=== PATIENT | female | born 1970 | race Caucasian/White ===

== ENCOUNTER 2016-09-10 10:58 | Emergency (ER) | payer SELFPAY ==
[~2016-09-10] VITALS: Ht 172.7 cm; Wt 81.5 kg
[~2016-09-10 10:58] MED LIST: ALBI1INJ; DOXY100T PO; GEMF600T PO; GLUCTAB PO; GLYB2.5T3 PO; LISI-360 PO; NAPR500 PO; SERT25TA83 PO
[2016-09-10 11:02] VITALS: BP 178/110; PULSE 88; RESP 18; TEMP 98.3; O2SAT 95
--- NOTE | 2016-09-10 11:08 | PD ---
Physical Exam Time Seen by Provider: 11:04 Narrative 46 year old presents with back pain for two weeks. Pt is diabetic, htn. Pt recently started back on her medication 1 week ago after visit at [facility]. Pt was given percocet there for her pain following a CT that she reports being negative. Pt has been with frequent voids and increasingly thirsty. Nausea without vomiting. Chilled without fever. No other symptoms Data Data Last Documented VS Vital Signs Date Time Temp Pulse Resp B/P Pulse Ox O2 Delivery O2 Flow Rate FiO2 09/10/16 11:02 98.3 88 18 178/110 95 Room Air Orders Basic Metabolic Panel (Bmp) (09/10/16 11:08) Complete Blood Count With Diff (09/10/16 11:08) Urinalysis - C+S If Indicated (09/10/16 11:08) Electrocardiogram (09/10/16 11:08) Ct Abd/Pel W Iv Contrast(Rout) (09/10/16 ) Iohexol 350 Inj (Omnipaque 350 Inj) (09/10/16 13:46) Ketorolac Inj (Toradol Inj) (09/10/16 15:15) Ondansetron Inj (Zofran Inj) (09/10/16 15:15) Sodium Chlor 0.9% 1000 Ml Inj (Ns 1000 M (09/10/16 15:15) Filter, Kidney Stone Bg (09/10/16 15:14) Labs Laboratory Tests Test 09/10/16 11:10 White Blood Count 14.7 TH/MM3 Red Blood Count 5.61 MIL/MM3 Hemoglobin 17.2 GM/DL Hematocrit 48.6 % Mean Corpuscular Volume 86.6 FL Mean Corpuscular Hemoglobin 30.7 PG Mean Corpuscular Hemoglobin 35.5 % Concent Red Cell Distribution Width 13.2 % Platelet Count 239 TH/MM3 Mean Platelet Volume 10.3 FL Neutrophils (%) (Auto) 69.0 % Lymphocytes (%) (Auto) 24.3 % Monocytes (%) (Auto) 4.3 % Eosinophils (%) (Auto) 1.6 % Basophils (%) (Auto) 0.8 % Neutrophils # (Auto) 10.2 TH/MM3 Lymphocytes # (Auto) 3.6 TH/MM3 Monocytes # (Auto) 0.6 TH/MM3 Eosinophils # (Auto) 0.2 TH/MM3 Basophils # (Auto) 0.1 TH/MM3 CBC Comment DIFF FINAL Differential Comment Urine Color YELLOW Urine Turbidity HAZY Urine pH 6.5 Urine Specific Foss 1.019 Urine Protein 100 mg/dL Urine Glucose (UA) 1000 mg/dL Urine Ketones NEG mg/dL Urine Occult Blood SMALL Urine Nitrite NEG Urine Bilirubin NEG Urine Urobilinogen LESS THAN 2.0 MG/DL Urine Leukocyte Esterase TRACE Urine RBC 1 /hpf Urine WBC 1 /hpf Urine Squamous Epithelial 13 /hpf Cells Urine Bacteria RARE /hpf Microscopic Urinalysis Comment CULT NOT INDICATED Sodium Level 131 MEQ/L Potassium Level 4.6 MEQ/L Chloride Level 97 MEQ/L Carbon Dioxide Level 26.2 MEQ/L Anion Gap 8 MEQ/L Blood Urea Nitrogen 12 MG/DL Creatinine 0.78 MG/DL Estimat Glomerular Filtration 79 ML/MIN Rate Random Glucose 305 MG/DL Calcium Level 9.2 MG/DL [facility] Medical Record Reviewed: Yes Supervised Visit with REFUGIO: No Narrative Course Work out initiated in triage. Scripts Ibuprofen 800 Mg [id number] Mg PO Q6HR PRN (PAIN SCALE 1 TO 10) #30 TAB Ref 0 Prov:Maye Larry 09/10/16 Condition: Stable Mariela Hall Sep 10, 2016 11:08
[2016-09-10 11:32] LABS: AUTOMATED NEUTROPHIL # 10.2 TH/MM3 (1.8-7.7); BASOPHIL # 0.1 TH/MM3 (0-0.2); BASOPHIL % 0.8 % (0.0-2.0); EOSINOPHIL # 0.2 TH/MM3 (0-0.4); EOSINOPHIL % 1.6 % (0.0-4.0); HEMATOCRIT 48.6 % (35.0-46.0); HEMO FLAGS DIFF FINAL; LYMPH % 24.3 % (9.0-44.0); LYMPHOCYTE # 3.6 TH/MM3 (1.0-4.8); MEAN CELL VOLUME 86.6 FL (80.0-100.0); MEAN CORPUSCULAR HEMOGLOBIN 30.7 PG (27.0-34.0); MEAN CORPUSCULAR HGB CONC 35.5 % (32.0-36.0); MONO % 4.3 % (0.0-8.0); PLATELET COUNT 239 TH/MM3 (150-450); RED BLOOD COUNT 5.61 MIL/MM3 (4.00-5.30); RED CELL DISTRIBUTION WIDTH 13.2 % (11.6-17.2); WHITE BLOOD COUNT 14.7 TH/MM3 (4.0-11.0)
[2016-09-10 11:41] LABS: BACTERIA, URINE RARE /hpf; BLOOD, URINE SMALL (NEG); GLUCOSE,URINE 1000 mg/dL (NEG); KETONE, URINE NEG (NEG); NITRITE,URINE NEG (NEG); PH, URINE 6.5 (5.0-8.5); SQUAMOUS EPITHELIAL CELL URINE 13 /hpf (0-5); URINE COLOR YELLOW (YELLW/STRAW)
[2016-09-10 11:48] LABS: COMMENT (UR) CULT NOT INDICATED; CULTURE IF INDICATED CULT NOT INDICATED
[2016-09-10 11:53] LABS: BICARBONATE 26.2 MEQ/L (21.0-32.0)
[2016-09-10 11:54] LABS: POTASSIUM 4.6 MEQ/L (3.5-5.1)
[2016-09-10] MEDS ORDERED: IOHEXOL 350 MG/ML 10 ML VIAL (for RAD DIAG) IV ONE (13:46)
--- NOTE | 2016-09-10 14:58 | RADRPT ---
EXAM DATE/TIME: 09/10/2016 13:42 [facility] COMPARISON: No previous studies available for comparison. INDICATIONS : Mid abdominal pain. Back pain. Nausea. IV CONTRAST: 93 cc Omnipaque 350 (iohexol) IV ORAL CONTRAST: No oral contrast ingested. RADIATION DOSE: 11.06 CTDIvol (mGy) MEDICAL HISTORY : Cerebrovascular disease. Renal insufficiency, chronic. Diabetes mellitus type 2.Hypertension. SURGICAL HISTORY : Tubal ligation. ENCOUNTER: Initial ACUITY: 2 weeks PAIN SCALE: 10/10 LOCATION: Bilateral low back TECHNIQUE: Volumetric scanning of the abdomen and pelvis was performed. Using automated exposure control and ad justment of the mA and/or kV according to patient size, radiation dose was kept as low as reasonably achievable to obtain optimal diagnostic quality images. FINDINGS: Examination of the lung bases demonstrates no abnormality. No pleural fluid is identified. No pulmona ry nodules are present. The liver and spleen are normal in size and no focal defects are identified. The gallbladder and pancreas are unremarkable. No intrahepatic or extrahepatic ductal dilatation is s een. The left adrenal gland is unremarkable. There is a nodule in the right adrenal gland likely refl ecting adenoma measuring 10 mm. The left kidney is unremarkable. There is a single stone within the r ight kidney without hydronephrosis measuring 4 mm in the lower pole. Examination of the pelvis demonstrates no evidence of free fluid or pelvic mass. No abnormally enlarg ed inguinal or retroperitoneal lymph nodes are present. The bladder is unremarkable. CONCLUSION: 1. No evidence of acute abdominal or pelvic process. No masses are identified. 2. Nonobstructing stone 4 mm lower pole right kidney 3. Probable right adrenal adenoma Bryan Strauss MD on September 10, 2016 at 14:49 Board Certified Radiologist. This report was verified electronically.
[2016-09-10] MEDS ORDERED: IBUP800T23 PO (15:14)
--- NOTE | 2016-09-10 15:14 | PD ---
HPI Chief Complaint: Back/ Neck Pain or Injury Time Seen by Provider: 15:09 Travel History International Travel<30 days: No Contact w/Intl Traveler<30days: No Traveled to known affect area: No History of Present Illness HPI 46-year-old female presents to the emergency Department with complaint of bilateral flank pain that radiates to her abdomen times one week. Pain is worse on the right than the left. She was evaluated one week ago at [facility] and had a CT scan which was negative. Patient states they were focused on her blood sugar that was elevated more than her complaint. She is diabetic and takes metformin. She denies dysuria, hematuria, urgency. Reports urinary frequency. Denies abdominal pain. Reports nausea without vomiting. Denies fever, chills. Has taken ibuprofen with minimal relief of pain. She did have a prescription of Percocet from [facility] which she has taken with good relief of symptoms. History of hypertension and diabetes. Dr. Goodwin is primary care provider. No other modifying factors or associated signs and symptoms. PFSH Past Medical History Anxiety: Yes Depression: Yes Cancer: No Cardiovascular Problems: Yes High Cholesterol: Yes Diabetes: Yes Hepatitis: No Hiatal Hernia: No Hypertension: Yes Thyroid Disease: No Triglycerides - High: Yes Past Surgical History Gynecologic Surgery: Yes (TUBAL LIGATION) Pacemaker: No Other Surgery: Yes Social History Alcohol Use: Yes (OCC) Tobacco Use: Yes Substance Use: No Allergies-Medications (Allergen,Severity, Reaction): Uncoded Allergies: NKA (Allergy, 05/20/12) Reported Meds & Prescriptions Reported Meds & Active Scripts Active Ibuprofen 800 Mg Tab 800 Mg PO Q6HR PRN Doxycycline Hyclate 100 mg (Doxycycline Hyclate) 100 Mg Tab 1 Tab PO Q12H 7 Days Naprosyn (Naproxen) 500 Mg Tab 500 Mg PO Q12 Reported Tanzeum 30 mg inj (Albiglutide 30 mg inj) 30 Mg Inj Glyburide 2.5 Mg Tab Unknown Dose PO DAILY Sertraline 25 mg (Sertraline HCl) 25 Mg Tab Unknown Dose PO DAILY Lisinopril 10 mg (Lisinopril) 10 Mg Tab 10 Mg PO DAILY@0600 Gemfibrozil 600 Mg Tab 600 Mg PO BIDAC Glucophage XR 24 HR (Metformin HCl) 500 Mg Tab 500 Mg PO TID Review of Systems Except as stated in HPI: all other systems reviewed are Neg Physical Exam Narrative GENERAL: Well-nourished, well-developed female patient, in no acute distress SKIN: Warm and dry. No rash. HEAD: Atraumatic. Normocephalic. EYES: Pupils equal and round. No scleral icterus. No injection or drainage. ENT: Mucosa pink and moist. NECK: Trachea midline. CARDIOVASCULAR: Regular rate and rhythm. No murmur appreciated. RESPIRATORY: No accessory muscle use. Clear to auscultation. Breath sounds equal bilaterally. GASTROINTESTINAL: Abdomen soft, non-tender, nondistended. Hepatic and splenic margins not palpable. Bowel sounds are active 4 quadrants. Bladder nontender and nondistended. MUSCULOSKELETAL: No obvious deformities. No clubbing. No cyanosis. No edema. BACK: Right CVA tenderness NEUROLOGICAL: Awake and alert. Oriented 3. No obvious cranial nerve deficits. Motor grossly within normal limits. Normal speech. Moves all extremities. 5/5 strength to all extremities. PSYCHIATRIC: Appropriate mood and affect; insight and judgment normal. Data Data Last Documented VS Vital Signs Date Time Temp Pulse Resp B/P Pulse Ox O2 Delivery O2 Flow Rate FiO2 09/10/16 11:02 98.3 88 18 178/110 95 Room Air Orders Basic Metabolic Panel (Bmp) (09/10/16 11:08) Complete Blood Count With Diff (09/10/16 11:08) Urinalysis - C+S If Indicated (09/10/16 11:08) Electrocardiogram (09/10/16 11:08) Ct Abd/Pel W Iv Contrast(Rout) (09/10/16 ) Iohexol 350 Inj (Omnipaque 350 Inj) (09/10/16 13:46) Ketorolac Inj (Toradol Inj) (09/10/16 15:15) Ondansetron Inj (Zofran Inj) (09/10/16 15:15) Sodium Chlor 0.9% 1000 Ml Inj (Ns 1000 M (09/10/16 15:15) Filter, Kidney Stone Bg (09/10/16 15:14) Labs Laboratory Tests Test 09/10/16 11:10 White Blood Count 14.7 TH/MM3 Red Blood Count 5.61 MIL/MM3 Hemoglobin 17.2 GM/DL Hematocrit 48.6 % Mean Corpuscular Volume 86.6 FL Mean Corpuscular Hemoglobin 30.7 PG Mean Corpuscular Hemoglobin 35.5 % Concent Red Cell Distribution Width 13.2 % Platelet Count 239 TH/MM3 Mean Platelet Volume 10.3 FL Neutrophils (%) (Auto) 69.0 % Lymphocytes (%) (Auto) 24.3 % Monocytes (%) (Auto) 4.3 % Eosinophils (%) (Auto) 1.6 % Basophils (%) (Auto) 0.8 % Neutrophils # (Auto) 10.2 TH/MM3 Lymphocytes # (Auto) 3.6 TH/MM3 Monocytes # (Auto) 0.6 TH/MM3 Eosinophils # (Auto) 0.2 TH/MM3 Basophils # (Auto) 0.1 TH/MM3 CBC Comment DIFF FINAL Differential Comment Urine Color YELLOW Urine Turbidity HAZY Urine pH 6.5 Urine Specific Edwards 1.019 Urine Protein 100 mg/dL Urine Glucose (UA) 1000 mg/dL Urine Ketones NEG mg/dL Urine Occult Blood SMALL Urine Nitrite NEG Urine Bilirubin NEG Urine Urobilinogen LESS THAN 2.0 MG/DL Urine Leukocyte Esterase TRACE Urine RBC 1 /hpf Urine WBC 1 /hpf Urine Squamous Epithelial 13 /hpf Cells Urine Bacteria RARE /hpf Microscopic Urinalysis Comment CULT NOT INDICATED Sodium Level 131 MEQ/L Potassium Level 4.6 MEQ/L Chloride Level 97 MEQ/L Carbon Dioxide Level 26.2 MEQ/L Anion Gap 8 MEQ/L Blood Urea Nitrogen 12 MG/DL Creatinine 0.78 MG/DL Estimat Glomerular Filtration 79 ML/MIN Rate Random Glucose 305 MG/DL Calcium Level 9.2 MG/DL [facility] Medical Decision Making Medical Screen Exam Complete: Yes Emergency Medical Condition: Yes Medical Record Reviewed: Yes Differential Diagnosis Kidney stone, urinary tract infection, pyelonephritis Narrative Course 46-year-old female with CT scan that verifies right-sided 4 mm nonobstructing kidney stone. CBC unremarkable. BMP unremarkable. Kidney function unremarkable. Urinalysis without signs of infection. 1 L Normal saline bolus, Toradol, Zofran ordered. Ibuprofen prescribed for home. Patient given urine strainer for home. Patient is medically cleared and stable for discharge. Discussed reasons to return to the emergency department. Instructed patient to follow up with primary care provider. Patient agrees with treatment plan. The patients vital signs are stable and the patient is stable for outpatient follow- up and treatment. Patient discharged home, stable and in no acute distress. Diagnosis Primary Impression: Right kidney stone Referrals: Primary Care Physician Patient Instructions: General Instructions, Kidney Stones (ED) Departure Forms: Tests/Procedures, Work Release Enter return to work date: Sep 12, 2016 Additional Instructions: Ibuprofen as needed and as directed to reduce pain Drink plenty of fluids Strain your urine Follow-up with primary care provider Return to the emergency department immediately with worsening of symptoms Med/Other Pt SpecificInfo: Prescription(s) given Scripts Ibuprofen 800 Mg [id number] Mg PO Q6HR PRN (PAIN SCALE 1 TO 10) #30 TAB Ref 0 Prov:Maye Larry 09/10/16 Disposition: 01 DISCHARGE HOME Condition: Stable Maye Larry Sep 10, 2016 15:14 Maye Larry Sep 10, 2016 15:14
[2016-09-10] MEDS ORDERED: KETOROLAC TROMETHAMINE 30 MG/ML (IVP) VIAL IV PUSH ONE (15:15)
[2016-09-10] MEDS ORDERED: ONDANSETRON HCL 4 MG/2 ML VIAL IV PUSH ONE (15:15)
[2016-09-10] MEDS ORDERED: SODIUM CHLOR 0.9% 1000 ML INJ 1,000 ML IV ONE (15:15)
[2016-09-10] MEDS ORDERED: PERC5TAB12 PO (15:29)
--- NOTE | 2016-09-11 21:26 | EKG ---
Date Performed: 09/10/2016 Time Performed: 11:36:12 PTAGE: 46 years EKG: Sinus rhythm POSSIBLE LEFT ATRIAL ENLARGEMENT BORDERLINE RIGHT AXIS DEVIATION BORDERLINE ECG PREVIOUS TRACING : 12/16/2015 04.31 DOCTOR: Rick Grubbs Interpretating Date/Time 09/11/2016 21:13:01
== END 2016-09-10 17:02 | disposition home or self-care (01) ==
LOC: NEPB 10:58
DX: N20.0 Calculus of kidney (principal); R11.0 Nausea; R35.0 Frequency of micturition; R94.31 Abnormal electrocardiogram [ECG] [EKG]; I10 Essential (primary) hypertension; E11.9 Type 2 diabetes mellitus without complications; E78.00 Pure hypercholesterolemia, unspecified; E78.1 Pure hyperglyceridemia; Z72.0 Tobacco use; Z79.84 Long term (current) use of oral hypoglycemic drugs; Z86.79 Personal history of other diseases of the circulatory system; Z86.59 Personal history of other mental and behavioral disorders
CPT/HCPCS: 74177; 80048; 81001; 85025; 93005; 96374; 96375; 99284; J1885; J2405; J7030; Q9967

== ENCOUNTER 2017-09-11 00:07 | Emergency (ER) | payer BC ==
[~2017-09-11] VITALS: Ht 170.2 cm; Wt 80.0 kg
[~2017-09-11 00:07] MED LIST changes: +IBUP1TAB7 PO
[2017-09-11 00:08] VITALS: BP 125/79; PULSE 89; RESP 16; TEMP 99.2; O2SAT 96
[2017-09-11 00:45] VITALS: BP 115/78; PULSE 94; RESP 16
[2017-09-11] MEDS ORDERED: METF500T PO (00:48)
[2017-09-11] MEDS ORDERED: LISI10TA3 PO (00:48)
--- NOTE | 2017-09-11 01:12 | PD ---
HPI Chief Complaint: Cold / Flu Symptoms Time Seen by Provider: 01:02 Travel History International Travel<30 days: No Contact w/Intl Traveler<30days: No Traveled to known affect area: No History of Present Illness HPI 47yo F with PMH of HTN, HLD presents to the ED with not feeling well since Thursday. Has been having coughing, nasal congestion. Had sharp chest pain only with cough. No documented fever but feeling hot and cold. Denies any sob, n/v, abdominal pain, focal weakness or numbness. PFSH Past Medical History Anxiety: Yes Depression: Yes Cancer: No Cardiovascular Problems: Yes High Cholesterol: Yes Diabetes: Yes (TYPE 2) Patient Takes Glucophage: Yes Diminished Hearing: No Hepatitis: No Hiatal Hernia: No Hypertension: Yes Thyroid Disease: No Triglycerides - High: Yes Tetanus Vaccination: < 5 Years Influenza Vaccination: No ?: Not Menopausal: No Tubal Ligation: Yes Past Surgical History Gynecologic Surgery: Yes (TUBAL LIGATION) Pacemaker: No Other Surgery: Yes Social History Alcohol Use: Yes (OCC) Tobacco Use: Yes Substance Use: No Allergies-Medications (Allergen,Severity, Reaction): Coded Allergies: No Known Allergies (Unverified , 09/11/17) Reported Meds & Prescriptions Reported Meds & Active Scripts Active Ventolin Hfa 18 GM Inh (Albuterol Sulfate) 90 Mcg/Act Aer 2 Puff INH Q4H PRN Deltasone (Prednisone) 20 Mg Tab 20 Mg PO BID 5 Days Tamiflu (Oseltamivir Phosphate) 75 Mg Cap 75 Mg PO BID 5 Days Reported Metformin (Metformin HCl) 500 Mg Tab 500 Mg PO DAILY With a meal Lisinopril 10 Mg Tab 10 Mg PO DAILY Review of Systems Except as stated in HPI: all other systems reviewed are Neg Physical Exam Narrative GENERAL: 47yo F in mild distress. SKIN: Focused skin assessment warm/dry. HEAD: Atraumatic. Normocephalic. EYES: Pupils equal and round. No scleral icterus. No injection or drainage. ENT: No nasal bleeding or discharge. Mucous membranes pink and moist. NECK: Trachea midline. No JVD. CARDIOVASCULAR: Regular rate and rhythm. No murmur appreciated. RESPIRATORY: No accessory muscle use. Coarse breath sounds bilaterally. GASTROINTESTINAL: Abdomen soft, non-tender, nondistended. MUSCULOSKELETAL: No obvious deformities. No clubbing. No cyanosis. No edema. NEUROLOGICAL: Awake and alert. No obvious cranial nerve deficits. Motor grossly within normal limits. Normal speech. PSYCHIATRIC: Appropriate mood and affect; insight and judgment normal. Data Data Last Documented VS Vital Signs Date Time Temp Pulse Resp B/P (MAP) Pulse Ox O2 Delivery O2 Flow Rate FiO2 09/11/17 02:23 97 21 09/11/17 00:59 Nasal Cannula 2.00 09/11/17 00:48 95 18 09/11/17 00:45 115/78 (90) 09/11/17 00:08 99.2 Orders Orders Influenzae A/B Antigen (09/11/17 00:25) Electrocardiogram (09/11/17 00:55) Complete Blood Count With Diff (09/11/17 00:55) Ckmb (Isoenzyme) Profile (09/11/17 00:55) Troponin I (09/11/17 00:55) Chest, Single Ap (09/11/17 00:55) Iv Access Insert/Monitor (09/11/17 00:55) Ecg Monitoring (09/11/17 00:55) Oxygen Administration (09/11/17 00:55) Oximetry (09/11/17 00:55) Comprehensive Metabolic Panel (09/11/17 00:55) Albuterol-Ipratropium Neb (Duoneb Neb) (09/11/17 02:00) Prednisone (Deltasone) (09/11/17 02:00) Oseltamivir (Tamiflu) (09/11/17 02:00) Ed Discharge Order (09/11/17 03:33) Labs Laboratory Tests Test 09/11/17 00:55 White Blood Count 6.8 TH/MM3 Red Blood Count 4.95 MIL/MM3 Hemoglobin 15.1 GM/DL Hematocrit 43.9 % Mean Corpuscular Volume 88.8 FL Mean Corpuscular Hemoglobin 30.6 PG Mean Corpuscular Hemoglobin Concent 34.5 % Red Cell Distribution Width 13.4 % Platelet Count 203 TH/MM3 Mean Platelet Volume 9.8 FL Neutrophils (%) (Auto) 62.4 % Lymphocytes (%) (Auto) 21.6 % Monocytes (%) (Auto) 14.5 % Eosinophils (%) (Auto) 1.0 % Basophils (%) (Auto) 0.5 % Neutrophils # (Auto) 4.2 TH/MM3 Lymphocytes # (Auto) 1.5 TH/MM3 Monocytes # (Auto) 1.0 TH/MM3 Eosinophils # (Auto) 0.1 TH/MM3 Basophils # (Auto) 0.0 TH/MM3 CBC Comment DIFF FINAL Differential Comment Blood Urea Nitrogen 13 MG/DL Creatinine 0.75 MG/DL Random Glucose 256 MG/DL Total Protein 7.7 GM/DL Albumin 3.1 GM/DL Calcium Level 8.3 MG/DL Alkaline Phosphatase 63 U/L Aspartate Amino Transf (AST/SGOT) 42 U/L Alanine Aminotransferase (ALT/SGPT) 45 U/L Total Bilirubin 0.3 MG/DL Sodium Level 133 MEQ/L Potassium Level 4.0 MEQ/L Chloride Level 100 MEQ/L Carbon Dioxide Level 24.3 MEQ/L Anion Gap 9 MEQ/L Estimat Glomerular Filtration Rate 82 ML/MIN Total Creatine Kinase 53 U/L Troponin I LESS THAN 0.02 NG/ML MDM Medical Decision Making Medical Screen Exam Complete: Yes Emergency Medical Condition: Yes Interpretation(s) EKG: NSR 94bpm. Normal axis. No ST segment elevation or depression. Differential Diagnosis Influenza vs. URI vs. pneumonia vs. COPD exacerbation Narrative Course 47yo F with cough, congestion and chills. Pt has no history of COPD but is a chronic smoker and has coarse breath sounds on exam. Saturating well at 96% on RA. Will give duonebs x3 and prednisone. Labs reviewed, no leukocytosis. Glucose elevated at 256. Normal CO2. No increased anion gap. Troponin negative. Do not think this is cardiac. Positive for flu B antigen. Pt given tamiflu. Pt reevaluated at bedside and said she feels better. Lungs are now clear. CXR negative. Return precautions given. Diagnosis Primary Impression: Influenza Additional Impression: COPD (chronic obstructive pulmonary disease) Qualified Codes: J43.9 - Emphysema, unspecified Patient Instructions: General Instructions Departure Forms: Tests/Procedures Additional Instructions: Please follow up with your primary care physician in 2-3 days. Return to the ED if symptoms worsen. Med/Other Pt SpecificInfo: Prescription(s) given Scripts Albuterol 18 GM Inh (Ventolin Hfa 18 GM Inh) 90 Mcg/Act Aer 2 PUFF INH Q4H Y for SHORTNESS OF BREATH, #1 INHALER 0 Refills Prov: Kristel Childs DO 09/11/17 Prednisone (Deltasone) 20 Mg Tab 20 MG PO BID for 5 Days, #10 TAB 0 Refills Prov: Kristel Childs DO 09/11/17 Oseltamivir (Tamiflu) 75 Mg Cap 75 MG PO BID for Mgmt Viral Infection for 5 Days, #10 CAP 0 Refills Prov: Kristel Childs DO 09/11/17 Disposition: 01 DISCHARGE HOME Condition: Stable Kristel Childs DO Sep 11, 2017 01:12
[2017-09-11 01:17] LABS: AUTOMATED NEUTROPHIL # 4.2 TH/MM3 (1.8-7.7); BASOPHIL % 0.5 % (0.0-2.0); EOSINOPHIL # 0.1 TH/MM3 (0-0.4); HEMATOCRIT 43.9 % (35.0-46.0); HEMOGLOBIN 15.1 GM/DL (11.6-15.3); LYMPH % 21.6 % (9.0-44.0); LYMPHOCYTE # 1.5 TH/MM3 (1.0-4.8); MEAN CELL VOLUME 88.8 FL (80.0-100.0); MEAN CORPUSCULAR HEMOGLOBIN 30.6 PG (27.0-34.0); MEAN CORPUSCULAR HGB CONC 34.5 % (32.0-36.0); MEAN PLATELET VOLUME 9.8 FL (7.0-11.0); MONO % 14.5 % (0.0-8.0); NEUT % 62.4 % (16.0-70.0); PLATELET COUNT 203 TH/MM3 (150-450); RED BLOOD COUNT 4.95 MIL/MM3 (4.00-5.30); RED CELL DISTRIBUTION WIDTH 13.4 % (11.6-17.2); WHITE BLOOD COUNT 6.8 TH/MM3 (4.0-11.0)
[2017-09-11 01:34] LABS: ALKALINE PHOSPHATASE 63 U/L (45-117); TOTAL BILIRUBIN ADULT 0.3 MG/DL (0.2-1.0); TOTAL PROTEIN 7.7 GM/DL (6.4-8.2); TROPONIN I LESS THAN 0.02 NG/ML (0.02-0.05)
--- NOTE | 2017-09-11 01:36 | RADRPT ---
EXAM DATE/TIME: 09/11/2017 01:22 [facility] COMPARISON: CHEST SINGLE AP, December 16, 2015, 4:21. INDICATIONS : Patient complains of cough, congestion, and chest pain. MEDICAL HISTORY : Diabetes mellitus type II. Hypertension SURGICAL HISTORY : None. ENCOUNTER: Initial ACUITY: 4 - 6 days PAIN SCORE: 5/10 LOCATION: Left chest FINDINGS: A single view of the chest demonstrates the lungs to be symmetrically aerated without evidence of mas s, infiltrate or effusion. The cardiomediastinal contours are unremarkable. Osseous structures are intact. CONCLUSION: 1. No acute cardiopulmonary disease. Kayode Gallardo MD on September 11, 2017 at 1:34 Board Certified Radiologist. This report was verified electronically.
[2017-09-11 01:37] LABS: ALBUMIN 3.1 GM/DL (3.4-5.0); ALT (GPT) 45 U/L (10-53); AST (GOT) 42 U/L (15-37); BICARBONATE 24.3 MEQ/L (21.0-32.0); BLOOD UREA NITROGEN 13 MG/DL (7-18); CALCIUM 8.3 MG/DL (8.5-10.1); CHLORIDE 100 MEQ/L (98-107); CREATININE 0.75 MG/DL (0.50-1.00); GLOMERULAR FILTRATION RATE 82 ML/MIN (>89); GLUCOSE,RANDOM 256 MG/DL (74-106); SODIUM (NA) 133 MEQ/L (136-145)
[2017-09-11] MEDS ORDERED: OSELTAMIVIR PHOSPHATE 75 MG CAP PO ONE (02:00)
[2017-09-11] MEDS ORDERED: predniSONE 50 MG TAB PO ONE (02:00)
[2017-09-11] MEDS: RESP: ALBUTEROL 2.5 MG/IPRATROPIUM 0.5 MG NEB (SCH) INH ×2 (02:22→02:23)
[2017-09-11 02:23] VITALS: O2SAT 97
[2017-09-11] MEDS ORDERED: PRED-503 PO (03:33)
[2017-09-11] MEDS ORDERED: VENTAER INH (03:33)
[2017-09-11] MEDS ORDERED: OSEL75 PO (03:33)
--- NOTE | 2017-09-11 08:04 | EKG ---
Date Performed: 09/11/2017 Time Performed: 00:54:14 PTAGE: 47 years EKG: Sinus rhythm BORDERLINE RIGHT AXIS DEVIATION BORDERLINE ECG No significant change from prior electrocardiogram. PREVIOUS TRACING : 09/10/2016 11.36 DOCTOR: Berto Vaughn Interpretating Date/Time 09/11/2017 08:03:38
== END 2017-09-11 03:52 | disposition home or self-care (01) ==
LOC: NEPC 00:07
DX: J10.1 Influenza due to other identified influenza virus with other respiratory manifestations (principal); J44.9 Chronic obstructive pulmonary disease, unspecified; R94.31 Abnormal electrocardiogram [ECG] [EKG]; I10 Essential (primary) hypertension; E78.00 Pure hypercholesterolemia, unspecified; E11.9 Type 2 diabetes mellitus without complications; F32.9 Major depressive disorder, single episode, unspecified; F41.9 Anxiety disorder, unspecified; F17.200 Nicotine dependence, unspecified, uncomplicated; Z79.84 Long term (current) use of oral hypoglycemic drugs; Z79.899 Other long term (current) drug therapy
CPT/HCPCS: 71045; 80053; 82550; 84484; 85025; 87804; 93005; 94640; 94664; 99285; J7512